=== PATIENT | male | born 1965 ===

== ENCOUNTER → 2018-09-10 20:26 | Outpatient (REF) | payer OTHER, SELFPAY ==
[2018-09-10 21:43] LABS: Alanine Aminotransferase 26 IU/L (21-72); Albumin 4.4 g/dL (3.5-5.0); Albumin Globulin Ratio 1.5 (1.0-2.8); Alkaline Phosphatase 63 U/L (38-126); Aspartate Aminotransferase 24 IU/L (17-59); Bilirubin Total 0.4 mg/dL (0.2-1.3); Blood Urea Nitrogen 12 mg/dL (9-20); Calcium 9.7 mg/dL (8.4-10.2); Carbon Dioxide 28 mmol/L (22-32); Chloride 104 mmol/L (98-107); Estimated Glomerular Filt Rate > 60.0 mL/min (>60); Glucose 76 mg/dL (70-100); HEMOLYSIS < 15 (0-50); Potassium 4.4 mmol/L (3.4-5.1); Sodium 143 mmol/L (137-145); Total Protein 7.4 g/dL (6.3-8.2)
[2018-09-10 21:59] LABS: Vitamin D 25 Hydroxy (D3) 59.9 ng/mL (30.0-100.0)
[2018-09-10 22:10] LABS: Free T3, Triiodothyronine Free 3.62 pg/mL (2.77-5.27); Free T4, Direct Thyroxine 1.21 ng/dL (0.78-2.19)
[2018-09-10 22:23] LABS: Thyroid Stimulating Hormone 2.47 uIU/mL (0.47-4.68)
[2018-09-12 15:47] LABS: Sex Hormone Binding Globulin 22 nmol/L (10-50)
[2018-09-13 20:51] LABS: Estradiol 26 pg/mL (< 40)
[2018-09-14 15:41] LABS: Dehydroepiandrosterone Sulfate 196 mcg/dL (38-313)
[2018-09-20 16:14] LABS: Testosterone Free 32.9; Testosterone Total 228
== END ==
LOC: LAB 20:26
PROVIDERS: Visit Provider Naturopath
DX: R53.83 Other fatigue (principal)
CPT/HCPCS: 36415; 80053; 82306; 82627; 82670; 82728; 84270; 84402; 84403; 84439; 84443; 84481